=== PATIENT | female | born 1955 | race Two or more races ===

== ENCOUNTER 2018-06-27 13:45 | Inpatient (IN) | payer OTHER ==
[~2018-06-27] VITALS: Ht 154.9 cm; Wt 82.9 kg
[2018-06-27 14:13] LABS: Basophils # (auto) 0.1 uL; Basophils % (auto) 0.6 % (0.0-2.0); Eosinophils # (auto) 0.2 uL; Eosinophils % (auto) 1.4 % (0.0-7.0); Hemoglobin 14.8 g/dL (12.2-16.2); Lymphocytes # (auto) 2.9 uL; Lymphocytes % (auto) 23.6 % (10.0-50.0); Mean Corpuscular Hemoglobin 27.8 pg (28.0-32.0); Mean Corpuscular Hgb Conc. 33.7 g/dL (32.0-36.0); Mean Corpuscular Volume 82.6 fL (80.0-100.0); Monocytes # (auto) 0.7 uL; Monocytes % (auto) 5.4 % (0.0-12.0); Neutrophils # (auto) 8.6 uL; Nucleated Red Blood Cells % 0.1 %; Platelet Count (auto) 354 10^3/uL (140-450); Red Blood Cells 5.33 10^6/uL (4.0-5.20); Red Cell Distribution Width 13.8 % (11.8-14.3); White Blood Cell 12.4 10^3/uL (4.4-10.8)
[2018-06-27 14:28] LABS: Albumin 3.5 g/dL (3.4-5.0); Calcium 8.9 mg/dL (8.5-10.1); Potassium 3.7 mmol/L (3.5-5.1)
[2018-06-27 14:30] LABS: Urine Bacteria FEW /hpf (None Seen); Urine Blood TRACE /uL (Negative); Urine Specific Gravity 1.016 (1.001-1.035); Urine WBC 3 /hpf (0 - 5)
[2018-06-27 14:32] LABS: BUN/Creatinine Ratio 18.6; Bilirubin, Total 0.7 mg/dL (0.2-1.0); Total Protein 8.4 g/dL (6.4-8.2)
[2018-06-27] MEDS ORDERED: ACETAMINOPHEN 325 MG TAB PO PRN (21:30)
[2018-06-27] MEDS ORDERED: MORPHINE SULFATE 4 MG/ML SYR/VIAL IV PRN (21:30)
[2018-06-27] MEDS ORDERED: TEMAZEPAM 15 MG CAP PO PRN (21:30)
[2018-06-27] MEDS ORDERED: ONDANSETRON HCL 4 MG/2 ML VIAL IV PRN (21:30)
[2018-06-27] MEDS ORDERED: cefTRIAXone 1GM/50ML D5W 50 ML IV ONE (22:00)
[2018-06-27] MEDS ORDERED: PANTOPRAZOLE 40 MG/10 ML VIAL IV ONE (22:00)
[2018-06-27] MEDS: cloNIDine HCL 0.1 MG TAB PO PRN (23:00)
[2018-06-28] VITALS (7 sets, daily range): BP systolic 139–162; BP diastolic 74–94
--- NOTE | 2018-06-28 02:52 | NUR ---
MS admit from ER EVATRUDI admitted to tele/MS after SBAR received. Patient oriented to Gracia martinez RN, unit, room, bed, and unit policies regarding patient care and visiting hours. Patient weighed by bedscale and encouraged to call if they need something. All questions and concerns addressed, patient verbalized understanding. Note: Came per stretcher awake alert oriented tristanian speaking only, not in distress, with toleable pain of 4/10 in the abdomen
[2018-06-28] MEDS ORDERED: HYDR25TA4 PO (03:52)
[2018-06-28] MEDS ORDERED: ASPI325T25 PO (03:52)
[2018-06-28] MEDS ORDERED: HYDR2.5L TOP (03:52)
[2018-06-28] MEDS ORDERED: LISI-646 PO (03:52)
[2018-06-28] MEDS ORDERED: ATOR20TA50 PO (03:52)
[2018-06-28] MEDS ORDERED: AMLO5TAB13 PO (03:52)
[2018-06-28] MEDS ORDERED: CLOT1CRE13 TOP (03:52)
[2018-06-28 07:03] LABS: Basophils # (auto) 0 uL; Basophils % (auto) 0.3 % (0.0-2.0); Eosinophils # (auto) 0.2 uL; Eosinophils % (auto) 1.2 % (0.0-7.0); Hematocrit 41.1 % (36.0-46.0); Hemoglobin 13.5 g/dL (12.2-16.2); Lymphocytes # (auto) 2.4 uL; Mean Corpuscular Hemoglobin 27.5 pg (28.0-32.0); Mean Corpuscular Hgb Conc. 32.9 g/dL (32.0-36.0); Mean Corpuscular Volume 83.7 fL (80.0-100.0); Monocytes # (auto) 0.7 uL; Monocytes % (auto) 5.2 % (0.0-12.0); Neutrophils # (auto) 9.5 uL; Neutrophils % (auto) 74.3 % (37.0-80.0); Platelet Count (auto) 321 10^3/uL (140-450); Red Blood Cells 4.91 10^6/uL (4.0-5.20); Red Cell Distribution Width 14.2 % (11.8-14.3); White Blood Cell 12.7 10^3/uL (4.4-10.8)
--- NOTE | 2018-06-28 07:23 | NUR ---
Report given to Jimbo Pearl to assume care, patient is resting not in distress.
[2018-06-28 07:42] LABS: Albumin 3.2 g/dL (3.4-5.0); BUN/Creatinine Ratio 16.7; Calcium 8.6 mg/dL (8.5-10.1); Potassium 3.5 mmol/L (3.5-5.1)
[2018-06-28 07:45] LABS: Bilirubin, Total 0.4 mg/dL (0.2-1.0); Total Protein 7.8 g/dL (6.4-8.2)
--- NOTE | 2018-06-28 08:05 | NUR ---
PT OFF UNIT TO [facility] FOR HIDA SCAN. NO S/S OF ACUTE DISTRESS NOTED. VS: 98.4, 71, 17, 92%, 139/74.
--- NOTE | 2018-06-28 10:05 | NUR ---
PT BACK TO ROOM. S/P HIDA SCAN. VS WNL. FAMILY AT BEDSIDE. WILL CONTINUE CARE.
--- NOTE | 2018-06-28 10:56 | NUR ---
DR. BENAVIDEZ AT BEDSIDE. PLAN OF CARE: NPO , LAPAROSCOPIC POSSIBLE OPEN CHOLECYSTECTOMY TOMORROW 06/29/18, 1/2NS WITH 20MEQK @ 50ML/HR. WILL CARRY OUT ORDER.
[2018-06-28] MEDS: PANTOPRAZOLE 40 MG/10 ML VIAL IV SCH (10:59)
[2018-06-28] MEDS ORDERED: SOD CHL 0.45% WITH 20MEQ KCL 1,000 ML IV SCH (11:00)
[2018-06-28 11:04] LABS: INR 0.98 (0.9-1.15); Partial Thromboplastin Time 29.9 sec (23.78-33.04); Prothrombin Time 10.5 sec (9.27-12.13)
--- NOTE | 2018-06-28 11:40 | NUR ---
DR. RODRIGUEZ AT BEDSIDE. POC DISCUSSED WITH PT AND SPOUSE, NEW ORDER IV ROCEPHIN, URINE CULTURE, LABS.
[2018-06-28 12:16] LABS: Amylase 511 U/L (25-115)
[2018-06-28 12:25] LABS: Lipase 4847 U/L (73-393)
[2018-06-28] MEDS: D5W/SOD CHL 0.45%/KCL 20MEQ 1,000 ML IV SCH (12:39)
[2018-06-28] MEDS: metroNIDAZOLE 500MG/100ML 100 ML IV SCH ×2 (13:17→21:56)
[2018-06-28 13:59] LABS: Hepatitis A Ab IgM Negative; Hepatitis B Core IgM Negative
[2018-06-28 14:02] LABS: Hepatitis B Surface Antigen Negative (Negative); Hepatitis C Antibody Negative (Negative)
--- NOTE | 2018-06-28 19:30 | NUR ---
Opening Shift Note Assumed care of patient, awake and alert. No S/S of distress/SOB or pain. Updated on POC and to maintain NPO, for Surgery tomorrow. Instructed to call for assist as needed, patient verbalized understanding, call light within reach, will continue to monitor for changes Q1hr and PRN.
[2018-06-28] MEDS: cefTRIAXone 1GM/50ML D5W 50 ML IV SCH (21:56)
[2018-06-29] MEDS: D5W/SOD CHL 0.45%/KCL 20MEQ 1,000 ML IV SCH ×4 (01:08→21:45)
--- NOTE | 2018-06-29 03:20 | NUR ---
CHG wipes done, beddings changed, maintained on NPO
[2018-06-29 05:00] VITALS: BP 155/90
[2018-06-29 05:12] LABS: Basophils # (auto) 0 uL; Basophils % (auto) 0.3 % (0.0-2.0); Eosinophils # (auto) 0.2 uL; Eosinophils % (auto) 1.7 % (0.0-7.0); Hematocrit 39.5 % (36.0-46.0); Hemoglobin 13.2 g/dL (12.2-16.2); Lymphocytes # (auto) 2.4 uL; Mean Corpuscular Hemoglobin 27.9 pg (28.0-32.0); Mean Corpuscular Hgb Conc. 33.4 g/dL (32.0-36.0); Mean Corpuscular Volume 83.8 fL (80.0-100.0); Monocytes # (auto) 0.7 uL; Monocytes % (auto) 6.3 % (0.0-12.0); Neutrophils # (auto) 8.2 uL; Neutrophils % (auto) 70.7 % (37.0-80.0); Nucleated Red Blood Cells % 0.1 %; Platelet Count (auto) 298 10^3/uL (140-450); Red Blood Cells 4.71 10^6/uL (4.0-5.20); Red Cell Distribution Width 14.4 % (11.8-14.3); White Blood Cell 11.6 10^3/uL (4.4-10.8)
[2018-06-29] MEDS: metroNIDAZOLE 500MG/100ML 100 ML IV SCH ×3 (05:25→21:45)
[2018-06-29 05:38] LABS: BUN/Creatinine Ratio 14.3; Calcium 8.3 mg/dL (8.5-10.1); Potassium 3.5 mmol/L (3.5-5.1)
[2018-06-29] MEDS ORDERED: DOXAPRAM HCL 20 MG/ML 20ML VIAL INJ IV ONE (06:56)
[2018-06-29] MEDS ORDERED: SUCCINYLCHOLINE CHLORIDE 20 MG/ML 10ML VIAL IV ONE (06:56)
--- NOTE | 2018-06-29 07:00 | NUR ---
Patient brought down to Pre Op via bed, consents signed, no distress noted during transport, endorsed to BRANDY Drew
[2018-06-29] MEDS ORDERED: ceFAZolin 1GM/50ML 50 ML IV ONE (07:05)
[2018-06-29] MEDS ORDERED: LIDOCAINE W/ EPINEPHRINE 1% 20ML VIAL ONE (07:14)
[2018-06-29] MEDS ORDERED: KETOROLAC TROMETH 30 MG/ML 1ML VIAL IV ONE (07:15)
[2018-06-29] MEDS ORDERED: METOCLOPRAMIDE HCL 5MG/ml INJ 2ml VIAL IV ONE (07:15)
[2018-06-29] MEDS ORDERED: HYDROmorphone HCL 2 MG/ML VL IV PRN (07:15)
[2018-06-29] MEDS ORDERED: SODIUM CHLORIDE LOCK 10 ML ONE (07:16)
[2018-06-29] MEDS ORDERED: MIDAZOLAM HCL 1MG/1ML-2 ML VIAL ONE (07:16)
[2018-06-29] MEDS ORDERED: MEPERIDINE HCL (50 MG/ML) 1 ML VIAL ONE (07:16)
[2018-06-29] MEDS ORDERED: KETOROLAC TROMETH 60MG/2ML VIAL IM ONE ×2 (07:16→08:16)
[2018-06-29] MEDS ORDERED: ROCURONIUM 10MG/ML 10ML VIAL IV ONE (07:16)
[2018-06-29] MEDS ORDERED: fentaNYL CITRATE 100 MCG/2 ML VL ONE (07:16)
[2018-06-29] MEDS ORDERED: METOCLOPRAMIDE HCL 5MG/ml INJ 2ml VIAL ONE (07:16)
[2018-06-29] MEDS ORDERED: ETOMIDATE (2MG/ML) 20ML VIAL IV ONE (07:25)
[2018-06-29] MEDS ORDERED: LIDOCAINE HCL 2% TOP JELLY 5ML TOP ONE (07:35)
[2018-06-29] MEDS: cloNIDine HCL 0.1 MG TAB PO PRN (07:39)
[2018-06-29] MEDS ORDERED: ESMOLOL HCL 10 ML IV ONE (07:54)
[2018-06-29] MEDS ORDERED: PROPOFOL 10 MG/ML 20 ML IV ONE (07:55)
--- NOTE | 2018-06-29 08:00 | NUR ---
PT AT PROCEDURE, UNABLE TO DO ASSESSMENT AT THIS TIME.
[2018-06-29] MEDS ORDERED: NEOSTIGMINE 1 MG/ML INJ (10mg/10ML VIAL) ONE (08:16)
[2018-06-29] MEDS ORDERED: GLYCOPYRROLATE 0.2 MG/ML 1ML VIAL ONE (08:16)
[2018-06-29 09:00] VITALS: BP_SYST 128; BP_SYST 180; BP_DIAS 102; BP_DIAS 72
--- NOTE | 2018-06-29 10:02 | NUR ---
Pt returned to floor via bed and staff. Pt status post lap choley. 3 small abdominal incisions with minimal serosanguineous drainage noted on gauze covered with Tegaderm. Vitals: rr 18, bp 154/91, hr 66, t 97.4, 02 94. pt reports very little pain at this time, told patient to notify me if she wanted pain medication. pt agreed, will continue to monitor.
[2018-06-29] MEDS: PANTOPRAZOLE 40 MG/10 ML VIAL IV SCH (10:15)
[2018-06-29 13:00] VITALS: BP 139/86
[2018-06-29] MEDS ORDERED: LISINOPRIL 20 MG TAB PO ONE (13:00)
--- NOTE | 2018-06-29 13:04 | NUR ---
DR SCHMITZ SAW PATIENT AND DISCUSSED POC. MD NOTIFIED PT BP 154/91 ON CLONIDINE. NEW ORDERS TO ADVANCE TO FULL LIQUID DIET IF TOLERATED. MD REPORTS HE WILL PUT PT ON BP MEDICATION WELL. PT VERBALIZED UNDERSTANDING.
--- NOTE | 2018-06-29 13:19 | NUR ---
ASKED VE TEACHER TO CALL IN GI CONSULT FOR ELEVATED AMYLASE.
--- NOTE | 2018-06-29 13:34 | NUR ---
PT REPORTS SHE DOESN'T WANT TO EAT YET, BUT WANTS TO KEEP THE TRAY. TRAY AT BEDSIDE, UNABLE TO ADVANCE DIET YET, PT HASN'T EATEN SINCE PROCEDURE, WILL CONTINUE TO MONITOR.
--- NOTE | 2018-06-29 14:33 | NUR ---
DISPUTE COORDINATOR REPORTS PBX TOLD HER DR. TRIPATHI UNAVAILABLE FOR GI CONSULT UNTIL AND NO COVERING MD. DR HARRIS NOTIFIED. MD REPORTS TO CALL DR. KELLOGG TO FIND WHO IS COVERING FOR DEUCE. CALLED PBX AND PAGED DR. KELLOGG, AWAITING CALL BACK.
--- NOTE | 2018-06-29 15:30 | NUR ---
SPOKE WITH DR KELLOGG, DR Tucker VERGARA IS COVERING FOR DR TRIPATHI. SPOKE WITH BROADCAST DESIGNER, SHE ALREADY CALLED Tucker VERGARA AND MARLINE VERGARA IS NOT COVERING FOR DEUCE.
[2018-06-29 17:00] VITALS: BP 124/74
--- NOTE | 2018-06-29 17:39 | NUR ---
SPOKE WITH DR. AINSLEY MD NOTIFIED UNABLE TO FIND COVERING PHYSICIAN FOR GI CONSULT. MD REPORTS HE WILL FIND OUT.
--- NOTE | 2018-06-29 19:35 | NUR ---
Opening Shift Note Assumed care of patient, awake and alert. No S/S of distress/SOB or pain. Noted 3 small incisions on abdomen with old stained drainage, dressing intact and binder on. Instructed on POC and to call for assist PRN, patient verbalized understanding, call light within reach, will continue to monitor for changes Q1hr and PRN.
[2018-06-29 20:00] VITALS: BP 144/86
[2018-06-29 20:53] LABS: Albumin 2.7 g/dL (3.4-5.0); Calcium 7.9 mg/dL (8.5-10.1); Potassium 3.6 mmol/L (3.5-5.1)
[2018-06-29 21:05] LABS: BUN/Creatinine Ratio 10.1; Bilirubin, Total 0.4 mg/dL (0.2-1.0); Total Protein 6.8 g/dL (6.4-8.2)
[2018-06-29] MEDS: ATORVASTATIN 20 MG TAB PO SCH (21:45)
[2018-06-29] MEDS: cefTRIAXone 1GM/50ML D5W 50 ML IV SCH (22:37)
[2018-06-30 05:00] VITALS: BP 159/84
[2018-06-30] MEDS: metroNIDAZOLE 500MG/100ML 100 ML IV SCH ×3 (05:30→22:30)
[2018-06-30] MEDS: D5W/SOD CHL 0.45%/KCL 20MEQ 1,000 ML IV SCH ×3 (05:40→22:33)
[2018-06-30 08:04] LABS: Basophils # (auto) 0 uL; Basophils % (auto) 0.3 % (0.0-2.0); Eosinophils # (auto) 0.3 uL; Eosinophils % (auto) 2.9 % (0.0-7.0); Hematocrit 39.3 % (36.0-46.0); Hemoglobin 13.2 g/dL (12.2-16.2); Lymphocytes # (auto) 2.6 uL; Mean Corpuscular Hemoglobin 28.1 pg (28.0-32.0); Mean Corpuscular Hgb Conc. 33.5 g/dL (32.0-36.0); Mean Corpuscular Volume 83.8 fL (80.0-100.0); Monocytes # (auto) 0.7 uL; Monocytes % (auto) 6.6 % (0.0-12.0); Neutrophils # (auto) 7.5 uL; Neutrophils % (auto) 67.2 % (37.0-80.0); Platelet Count (auto) 304 10^3/uL (140-450); Red Blood Cells 4.69 10^6/uL (4.0-5.20); Red Cell Distribution Width 14.5 % (11.8-14.3); White Blood Cell 11.2 10^3/uL (4.4-10.8)
[2018-06-30 08:20] LABS: Potassium 3.6 mmol/L (3.5-5.1)
[2018-06-30 08:35] VITALS: BP 150/86
[2018-06-30] MEDS: LISINOPRIL 20 MG TAB PO SCH (09:56)
[2018-06-30] MEDS: PANTOPRAZOLE 40 MG/10 ML VIAL IV SCH (09:57)
[2018-06-30] MEDS: amLODIPine BESYLATE 5 MG TAB PO SCH (09:57)
[2018-06-30] MEDS: HYDROcodone-ACET 5/325MG TAB PO PRN ×2 (11:17→21:34)
[2018-06-30 13:00] VITALS: BP 143/89
[2018-06-30] MEDS: Ensure Enlive Strawberry 8oz Bottle PO SCH ×2 (14:53→19:46)
[2018-06-30 17:00] VITALS: BP 146/77
--- NOTE | 2018-06-30 19:30 | NUR ---
Opening Shift Note Assumed care of pt., resting in bed with at bedside. No S/S of distress or SOB. Instructed on POC, pt. verbalized understanding. Advised to call for assistance as needed. Bed locked in lowest position, with call light in reach. Will continue to monitor Q1hr and PRN throughout the shift.
[2018-06-30] MEDS: ATORVASTATIN 20 MG TAB PO SCH (21:33)
[2018-06-30] MEDS: cefTRIAXone 1GM/50ML D5W 50 ML IV SCH (21:33)
[2018-07-01 05:00] VITALS: BP 145/87
[2018-07-01] MEDS: metroNIDAZOLE 500MG/100ML 100 ML IV SCH (05:20)
[2018-07-01] MEDS: D5W/SOD CHL 0.45%/KCL 20MEQ 1,000 ML IV SCH (05:29)
[2018-07-01 06:44] LABS: Basophils # (auto) 0 uL; Basophils % (auto) 0.2 % (0.0-2.0); Eosinophils # (auto) 0.4 uL; Eosinophils % (auto) 4.5 % (0.0-7.0); Hematocrit 38.7 % (36.0-46.0); Hemoglobin 12.8 g/dL (12.2-16.2); Lymphocytes # (auto) 2.2 uL; Lymphocytes % (auto) 24.1 % (10.0-50.0); Mean Corpuscular Hgb Conc. 33.1 g/dL (32.0-36.0); Mean Corpuscular Volume 84.5 fL (80.0-100.0); Monocytes # (auto) 0.8 uL; Monocytes % (auto) 8.3 % (0.0-12.0); Neutrophils # (auto) 5.8 uL; Neutrophils % (auto) 62.9 % (37.0-80.0); Nucleated Red Blood Cells % 0.1 %; Platelet Count (auto) 306 10^3/uL (140-450); Red Blood Cells 4.58 10^6/uL (4.0-5.20); Red Cell Distribution Width 14.5 % (11.8-14.3); White Blood Cell 9.3 10^3/uL (4.4-10.8)
[2018-07-01 06:53] LABS: BUN/Creatinine Ratio 6.7; Calcium 8.3 mg/dL (8.5-10.1); Potassium 3.8 mmol/L (3.5-5.1)
[2018-07-01] MEDS: Ensure Enlive Strawberry 8oz Bottle PO SCH ×2 (08:00→12:00)
[2018-07-01 09:00] VITALS: BP 155/93
--- NOTE | 2018-07-01 09:20 | NUR ---
MD AT BEDSIDE. NO NEW ORDERS. WILL CONTINUE TO MONITOR.
[2018-07-01] MEDS: PANTOPRAZOLE 40 MG/10 ML VIAL IV SCH (09:46)
[2018-07-01] MEDS: amLODIPine BESYLATE 5 MG TAB PO SCH (09:47)
[2018-07-01] MEDS: LISINOPRIL 20 MG TAB PO SCH (09:47)
[2018-07-01 12:23] VITALS: BP 153/93
== END 2018-07-01 13:15 | disposition home or self-care (01) | DRG 263 ==
LOC: ER 13:45 → OVERFLOW 21:24 → EAST 21:24
PROVIDERS: ADMIT Nurse Practitioner; ATTEND Internal Medicine
PROC: 0FT44ZZ Resection of Gallbladder, Percutaneous Endoscopic Approach (ICD-10-PCS; principal; 2018-06-29 07:38)
DX: K80.00 Calculus of gallbladder with acute cholecystitis without obstruction (principal); K85.90 Acute pancreatitis without necrosis or infection, unspecified; K83.09 Other cholangitis; R16.0 Hepatomegaly, not elsewhere classified; E66.01 Morbid (severe) obesity due to excess calories; R65.10 Systemic inflammatory response syndrome (SIRS) of non-infectious origin without acute organ dysfunction; N39.0 Urinary tract infection, site not specified; I10 Essential (primary) hypertension; E78.5 Hyperlipidemia, unspecified; Z79.899 Other long term (current) drug therapy; Z82.49 Family history of ischemic heart disease and other diseases of the circulatory system; Z68.34 Body mass index [BMI] 34.0-34.9, adult
CPT/HCPCS: 36415; 74176; 76705; 78226; 80048; 80053; 80074; 81001; 82150; 82247; 83690; 85025; 85610; 85730; 86850; 86900; 86901; 87040; 87086; 93005; 96365; 96367; 96375; A6257; C9113; G0378; J0330; J0690; J0696; J1885; J2250; J2704; J3490